=== PATIENT | female | born 1990 | race African-American/Black ===

== ENCOUNTER 2017-04-14 20:54 | Emergency (ER) | payer OTHER ==
[~2017-04-14] VITALS: Ht 154.9 cm; Wt 83.9 kg
[~2017-04-14 20:54] MED LIST: APAP500; APAP500 PO; COLACE 100 MG100 MG; COLACE 100 MG100 MG PO; DERMOPLAST SPRA56 ML; IBUPROFEN 800800 M1; IBUPROFEN 800800 M1 PO; IRON325 PO; IROSPAN 24/6 T1 EACH; LANOLIN56 GM; LOCOID 0.1% CRE15 GM; NOHOMEMEDICATIONS; PRENATAL; TUCKS MEDICATE1 EAC1; TUCKS1 EAC1
[2017-04-14 21:20] LABS: URINE BILIRUBIN NEGATIVE (Negative); URINE BLOOD NEGATIVE (Negative); URINE COLOR YELLOW; URINE GLUCOSE-RANDOM* NEGATIVE (Negative); URINE KETONES NEGATIVE (Negative); URINE NITRITE NEGATIVE (Negative); URINE PROTEIN (DIPSTICK) NEGATIVE (Negative); URINE SPECIFIC GRAVITY >= 1.030 (1.003-1.035); URINE UROBILINOGEN 0.2 E.U./dl (0.2-1.0)
[2017-04-14 21:43] LABS: ABSOLUTE NEUTROPHILS 4.9 thou/uL (1.4-8.2); BASOPHILS 0.7 % (0.0-2.0); EOSINOPHILS 4.1 % (0.0-3.0); HEMATOCRIT 34.1 % (37.0-47.0); HEMOGLOBIN 11.2 gm/dL (12.0-15.0); LYMPHOCYTES 29.7 % (24.0-44.0); MCH 26.3 pg (26.0-34.0); MCHC 32.8 g/dL (28.0-37.0); MCV 80.1 fL (80.0-100.0); PLATELET COUNT 255 thou/uL (150-400); POLYS 57.5 % (36.0-66.0); RBC 4.26 mil/uL (4.20-5.00); RDW 16.3 % (10.5-14.5); WBC 8.6 thou/uL (4.0-11.0)
[2017-04-14 21:45] LABS: MANUAL DIFF NO
[2017-04-14 21:51] LABS: ANION GAP 5 mmol/L (7-16); BUN 11 mg/dL (7-18); CALCIUM 8.3 mg/dL (8.5-10.1); CHLORIDE 105 mmol/L (98-107); CO2 27 mmol/L (21-32); CREATININE 0.7 mg/dL (0.6-1.0); GLUCOSE 94 mg/dL (74-106); POTASSIUM 3.7 mmol/L (3.5-5.1); SODIUM 137 mmol/L (136-145)
[2017-04-14 21:57] LABS: ALBUMIN 3.3 g/dL (3.4-5.0); ALKALINE PHOSPHATASE 76 U/L (46-116); DIRECT BILIRUBIN < 0.1 mg/dL (<0.1-0.3); SGOT 12 U/L (15-37); SGPT 13 U/L (30-65); TOTAL BILIRUBIN 0.2 mg/dL (<0.1-1.0); TOTAL PROTEIN 6.9 g/dL (6.4-8.2)
[2017-04-14] MEDS ORDERED: BENTYL 20 MG TA20 M1 PO (22:53)
[2017-04-14 23:07] VITALS: BP 95/60
== END 2017-04-14 23:15 | disposition home or self-care (01) ==
LOC: ER 20:54
PROVIDERS: Nurse Practitioner
DX: R10.31 Right lower quadrant pain (principal)

== ENCOUNTER 2021-07-22 10:07 | Emergency (ER) | payer OTHER ==
[~2021-07-22] VITALS: Ht 154.9 cm; Wt 85.7 kg
[~2021-07-22 10:07] MED LIST changes: +BENTYL 20 MG TA20 M1 PO
[2021-07-22] MEDS ORDERED: NOHOMEMEDICATIONS (10:14)
[2021-07-22 10:44] LABS: URINE BILIRUBIN NEGATIVE (Negative); URINE BLOOD NEGATIVE (Negative); URINE CLARITY SL CLOUDY; URINE COLOR YELLOW; URINE GLUCOSE-RANDOM* NEGATIVE (Negative); URINE KETONES NEGATIVE (Negative); URINE LEUKOCYTES-REFLEX NEGATIVE (Negative); URINE NITRITE-REFLEX NEGATIVE (Negative); URINE PROTEIN (DIPSTICK) NEGATIVE (Negative)
[2021-07-22 10:49] LABS: ABSOLUTE NEUTROPHILS 4.2 thou/uL (1.4-8.2); BASOPHILS 0.9 % (0.0-2.0); EOSINOPHILS 1.2 % (0.0-3.0); HEMATOCRIT 35.2 % (37.0-47.0); MCH 25.5 pg (26.0-34.0); MCHC 31.3 g/dL (28.0-37.0); MCV 81.4 fL (80.0-100.0); MONOCYTES 8.2 % (1.0-8.0); PLATELET COUNT 310 thou/uL (150-400); POLYS 61.7 % (36.0-66.0); RBC 4.33 mil/uL (4.20-5.00); RDW 17.2 % (10.5-14.5); WBC 6.9 thou/uL (4.0-11.0)
[2021-07-22 11:07] LABS: CALCIUM 8.8 mg/dL (8.5-10.1); CREATININE 0.7 mg/dL (0.6-1.0); POTASSIUM 3.9 mmol/L (3.5-5.1)
[2021-07-22 11:13] LABS: ALBUMIN 3.5 g/dL (3.4-5.0); TOTAL BILIRUBIN 0.4 mg/dL (0.2-1.0); TOTAL PROTEIN 7.3 g/dL (6.4-8.2)
[2021-07-22] MEDS ORDERED: NEXIUM40 MG PO (12:29)
[2021-07-22] MEDS ORDERED: ZOFRAN ODT4 MG PO (12:29)
[2021-07-22 12:42] VITALS: BP 104/59
== END 2021-07-22 12:50 | disposition home or self-care (01) ==
LOC: ER 10:07
PROVIDERS: Emergency Medicine
DX: K29.70 Gastritis, unspecified, without bleeding (principal); R10.10 Upper abdominal pain, unspecified; F12.90 Cannabis use, unspecified, uncomplicated; Z98.51 Tubal ligation status